=== PATIENT | female | born 1990 | race Caucasian/White ===

== ENCOUNTER 2016-04-22 08:14 | Emergency (ER) | payer BC, OTHER ==
--- NOTE | ~2016-04-22 | CR63 ---
[facility]. [facility] A Service of [facility] RADIOLOGY TEXT RESULTS PATIENT: JANICE BAIRES LOCATION: SED : 86 UNIT #: [id number] AGE: [address]: Jac Huston MD SEX: F ORDER DR: [id number] [address] [address] [id number] E MR#: [id number] Acc #: [id number] NAME: JANICE BAIRES : 1990 SEX: F STUDY DATE/TIME: 04/22/2016 8:06 UNIT: SED ROOM: STUDY DESCRIPTION: CR Chest 2 View Attending Physician: Jac Huston M.D. Ordering Physician: Jac Huston M.D. Primary Care Physician: No Primary Care Physician MEDICAL IMAGING REPORT This report is preliminary unless electronic signature is present. EXAM PA and lateral chest. INDICATION 26-year-old female with cough and vomiting since Monday. COMPARISON STUDIES Compared with 04/10/2007 FINDINGS Calcified granuloma in the right base. No acute infiltrate. Heart size normal. Visualized osseous structures are unremarkable. IMPRESSION No active disease. Dictated by... Reddy Medina M.D. THIS IS AN ELECTRONICALLY VERIFIED REPORT Reddy Medina M.D. at 04/22/2016 5:06 PM MARIMAR/tonio TD: 04/22/2016 10:47 JOB #: [id number] MEDICAL IMAGING REPORT
[~2016-04-22 08:14] MED LIST: AFRIN3 ML NS; BACTRIM DS TABL1 TA1 PO; BROMFED DM COU118 ML PO; MACROBID100 M1 PO; MACROBID100 MG; METRONIDAZOLE PO; NITROFURANTOIN; NO MEDICATIONS; PRENATAL VITAMINS; PRENATAL1 TA1; TRI-LO-SPRINTE1 EACH PO; ZOFRAN ODT4 MG PO
[2016-04-22 08:20] LABS: INFLUENZA A NEG (NEG); INFLUENZA B NEG (NEG)
== END 2016-04-22 08:29 | disposition home or self-care (01) ==
LOC: SED 08:14
PROVIDERS: Emergency Medicine
DX: J06.9 Acute upper respiratory infection, unspecified (principal)
CPT/HCPCS: 71020; 87804; 99283